=== PATIENT | female | born 1990 | race Caucasian/White ===

== ENCOUNTER 2019-07-07 05:17 | Inpatient (IN) ==
[2019-07-07] MEDS ORDERED: Naloxone 0.4 MG/ML INJ IVP PRN ×2 (05:19→07:11)
[2019-07-07] MEDS ORDERED: Metoclopramide 10 MG/2 ML VIAL IVP PRN ×2 (05:19→11:41)
[2019-07-07] MEDS ORDERED: Famotidine 20 MG/2 ML VIAL IVP PRN (05:19)
[2019-07-07] MEDS ORDERED: Lidocaine 1% 20 ML MDV INFILT PRN (05:19)
[2019-07-07] MEDS: Ringers Solution, Lactated 1,000 ML IVC SCH ×2 (05:51→07:21)
[2019-07-07 06:01] LABS: Amphetamine Screen,Urine Negative ng/mL (Cutoff=1000); Barbiturate Screen,Urine Negative ng/mL (Cutoff=200); Benzodiazepines Screen,Urine Negative ng/mL (Cutoff=200); Cannabinoid Screen,Urine Negative ng/mL (Cutoff = 50); Cocaine Screen,Urine Negative ng/mL (Cutoff= 300); Opiate Screen,Urine Negative ng/mL (Cutoff=300); Phencyclidine Screen,Urine Negative ng/mL (Cutoff=25)
[2019-07-07 06:05] LABS: Basophils % 0.3 %; Eosinophils # 0.2 K/mcL (0.0-0.6); Eosinophils % 2.3 %; Hematocrit 36.9 % (35.3-44.9); Hemoglobin 11.6 g/dL (11.5-15.4); Lymphocytes # 2.1 K/mcL (0.6-4.6); Lymphocytes % 21.9 %; Mean Corpuscular HGB Conc 31.4 g/dL (31.6-35.5); Mean Corpuscular Hemoglobin 29.3 pg (28.0-33.3); Mean Corpuscular Volume 93.2 fL (83.0-100.0); Mean Platelet Volume 9.6 fL (9.4-12.4); Monocytes # 0.8 K/mcL (0.0-1.3); Monocytes % 8.4 %; Neutrophils # 6.3 K/mcL (1.6-8.9); Platelet Count 221 K/mcL (140-400); Red Blood Count 3.96 M/mcL (3.82-4.97); Red Cell Distribution Width 15.1 % (11.5-14.5); Segmented Neutrophils % 66.1 %; White Blood Count 9.6 K/mcL (4.3-11.1)
[2019-07-07] MEDS ORDERED: ceFAZolin 3,000 MG in Water for inj. (sterile) 30 ML IVP ONE (06:28)
[2019-07-07] MEDS ORDERED: *HR* FentaNYL (PF) 100 MCG/2 ML VIAL ONE (06:39)
[2019-07-07] MEDS ORDERED: *HR* Morphine Sulfate/PF 10 MG/10 ML AMPUL ONE (06:39)
[2019-07-07] MEDS ORDERED: *HR* Oxytocin 10 UNIT/ML VIAL IM ONE (06:48)
[2019-07-07] MEDS ORDERED: EPHEDrine 50 MG/ML VIAL ONE (07:04)
[2019-07-07] MEDS ORDERED: Ondansetron 4 MG/2 ML VIAL ONE (07:04)
[2019-07-07] MEDS ORDERED: Ringers Solution, Lactated 1,000 ML ONE (07:05)
[2019-07-07] MEDS ORDERED: *HR* Meperidine 25 MG/ML SYRINGE IVP PRN (07:11)
[2019-07-07] MEDS ORDERED: *HR* Labetalol 20 MG/4 ML SYRINGE IVP PRN (07:11)
[2019-07-07] MEDS ORDERED: *HR* HYDROmorphone PF 0.5 MG/0.5 ML SYRINGE IVP PRN (07:11)
[2019-07-07] MEDS ORDERED: Ondansetron 4 MG/2 ML VIAL IVP ONE (07:11)
[2019-07-07] MEDS ORDERED: *HR* OxyCODONE Immed Rel 5 MG TABLET PO PRN (07:11)
[2019-07-07] MEDS ORDERED: *HR* Promethazine 25 MG/ML VIAL IVP PRN (07:11)
[2019-07-07] MEDS ORDERED: Sennosides 8.6 MG TABLET PO PRN (11:41)
[2019-07-07] MEDS ORDERED: Ondansetron 4 MG/2 ML VIAL IVP PRN (11:41)
[2019-07-07] MEDS ORDERED: *HR* OxyCODONE/APAP 5/325 TABLET PO PRN (11:41)
[2019-07-07] MEDS ORDERED: Simethicone 80 MG TAB.CHEW PO PRN (11:41)
[2019-07-07] MEDS: metroNIDAZOLE 500 MG TABLET PO SCH ×3 (13:31→21:21)
[2019-07-07] MEDS: Ibuprofen 600 MG TABLET PO PRN ×2 (13:31→21:21)
[2019-07-07] MEDS: Prenatal Vit/FA 1 EACH TABLET PO SCH (13:32)
[2019-07-07] MEDS: Oxytocin 20 units/ LR 1000 mL 20 UNIT/1,000 ML BAG IVC SCH ×2 (13:33→21:21)
[2019-07-07] MEDS: ceFAZolin 3,000 MG in 0.9 % Sodium Chloride 100 ML IVPB SCH (15:38)
[2019-07-08] MEDS: ceFAZolin 3,000 MG in 0.9 % Sodium Chloride 100 ML IVPB SCH ×2 (01:01→07:43)
[2019-07-08] MEDS: Ibuprofen 600 MG TABLET PO PRN ×2 (05:31→19:56)
[2019-07-08 06:30] LABS: Basophils % 0.3 %; Eosinophils # 0.2 K/mcL (0.0-0.6); Eosinophils % 2.2 %; Hematocrit 35.2 % (35.3-44.9); Hemoglobin 11.4 g/dL (11.5-15.4); Immature Granulocytes % 0.9 % (0-4); Lymphocytes % 11.3 %; Mean Corpuscular HGB Conc 32.4 g/dL (31.6-35.5); Mean Corpuscular Hemoglobin 29.8 pg (28.0-33.3); Mean Corpuscular Volume 92.1 fL (83.0-100.0); Mean Platelet Volume 9.6 fL (9.4-12.4); Monocytes # 0.6 K/mcL (0.0-1.3); Monocytes % 6.3 %; Neutrophils # 7.3 K/mcL (1.6-8.9); Platelet Count 175 K/mcL (140-400); Red Blood Count 3.82 M/mcL (3.82-4.97); Red Cell Distribution Width 15.5 % (11.5-14.5); White Blood Count 9.2 K/mcL (4.3-11.1)
[2019-07-08] MEDS: Propranolol LA (24 HR) 80 MG CAP.SA.24H PO SCH (07:43)
[2019-07-08] MEDS: Prenatal Vit/FA 1 EACH TABLET PO SCH (07:43)
[2019-07-08] MEDS: metroNIDAZOLE 500 MG TABLET PO SCH ×3 (07:43→19:56)
[2019-07-08 20:09] VITALS: BP 133/95
[2019-07-09] MEDS: Ibuprofen 600 MG TABLET PO PRN ×2 (05:47→10:42)
[2019-07-09] MEDS: Propranolol LA (24 HR) 80 MG CAP.SA.24H PO SCH (10:42)
[2019-07-09] MEDS: Prenatal Vit/FA 1 EACH TABLET PO SCH (10:42)
== END 2019-07-09 13:51 | disposition home or self-care (01) | DRG 784 ==
LOC: 1NENULAB 05:17 → 1NENUOBS 11:29
PROVIDERS: ADMIT Obstetrics & Gynecology; ATTEND Obstetrics & Gynecology